=== PATIENT | male | born 1985 | race Caucasian/White ===

== ENCOUNTER 2023-06-17 20:26 | Inpatient (IN) | payer OTHER, SELFPAY ==
[2023-06-17] MEDS ORDERED: Calcium Chloride 1 GM/10 ML Abboject SYRINGE ONE ×2 (20:37→21:07)
[2023-06-17] MEDS ORDERED: Protamine Sulfate 50 MG/5 ML VIAL ONE (20:57)
[2023-06-17] MEDS ORDERED: Heparin 5,000 UNITS/ML VIAL ONE (20:57)
[2023-06-17] MEDS ORDERED: Fentanyl CADD 100 ML IV SCH (21:00)
[2023-06-17] MEDS ORDERED: Tranexamic Acid 1,000 MG/10 ML VIAL ONE (21:00)
[2023-06-17 21:01] LABS: Hematocrit 38.8 % (42.0-52.0); Hemoglobin 12.3 g/dL (14.0-18.0); Mean Corpuscular HGB CONC 31.7 g/dL (32.0-36.0); Mean Corpuscular Hemoglobin 28.5 pg (27.0-31.0); Mean Platelet Volume 8.7 fL (7.4-10.4); Platelet Count 148 10x3/uL (130-400); RBC Distribution Width 15.2 % (11.5-14.5); Red Blood Cell (RBC) Count 4.31 mill/uL (4.70-6.10)
[2023-06-17 21:03] LABS: Delete Auto Diff?? YES; Manual Diff?? YES
[2023-06-17] MEDS ORDERED: Fentanyl 250 MCG/5 ML VIAL ONE (21:06)
[2023-06-17] MEDS ORDERED: Vasopressin 20 UNITS/ML VIAL ONE (21:07)
[2023-06-17] MEDS ORDERED: Norepinephrine 4 MG/4 ML VIAL ONE (21:07)
[2023-06-17] MEDS ORDERED: Sodium Bicarb 50 MEQ/50 ML VIAL ONE (21:07)
[2023-06-17 21:10] LABS: INR-International Normal Ratio 1.5; Prothrombin Time 19.1 sec (12.0-14.7)
[2023-06-17 21:11] LABS: PTT 54.8 sec (22.9-36.1)
[2023-06-17 21:18] LABS: Actual Bicarbonate (HCO3a) 17.4 mEq/L (22-28); Analyzer IN Cardio ER; Base Excess (BEa) -11.2 mEq/L (-2.0 to +3.0); CO2 Tension 49.1 mmHg (35.0-45.0); Calcium, Ionized (arterial) 1.32 mmol/L (1.12-1.30); Carboxyhemoglobin (COHb) 0.3 gm% (0.0-3.0); Hematocrit-ABG 41 % (42.0-52.0); Hemoglobin (Hb) 14.1 g/dL (14.0-18.0); O2 Tension (PaO2), arterial 589.1 mmHg (80.0-100.0); Potassium - ABG Lab 5.51 mmol/L (3.70-5.30)
[2023-06-17 21:22] LABS: ALT (SGPT) 396 U/L (8-55); AST (SGOT) 331 U/L (5-34); Albumin 3.1 g/dL (3.5-5.0); Alkaline Phosphatase 93 U/L (40-110); Anion Gap 22 mmol/L (10-20); BUN (Urea Nitrogen) 19 mg/dL (8.9-20.6); Bilirubin, Total 0.3 mg/dL (0.2-1.2); Calc. Creatinine Clearance 0 mL/min (70-130); Calcium 12.4 mg/dL (7.8-10.44); Carbon Dioxide 16 mmol/L (22-29); Chloride 112 mmol/L (98-107); Estimated GFR 49; Glucose 160 mg/dL (70-105); Protein, Total 5.1 g/dL (6.0-8.3); Sodium 144 mmol/L (136-145)
[2023-06-17 21:23] LABS: Band 4 % (5-11); Burr Cells SLIGHT = 2-5 cells HPF (0-1); CellaVision Operator ID lab.abc; Lymphocytes 17 % (21-51); Monocytes 1 % (0-10); Neutrophil 78 % (42-75); Platelet Adequacy Comment Platelets Normal; RBC Morphology Within Normal Limits; Reactive Lymphocytes 1 % (0-10); Smudge Cells 2.9 %; Total Cell Count 103
[2023-06-17] MEDS ORDERED: Rocuronium Bromide 10 MG/ML (10ML VIAL) ONE (21:27)
[2023-06-17] MEDS ORDERED: Vecuronium 10 MG VIAL ONE (21:27)
[2023-06-17 21:30] LABS: ALV-art Gradient 62.525 mmHg (0-20); Puncture Site LRA; pH, Arterial 7.167 (7.35-7.45)
[2023-06-17 21:32] LABS: Potassium 6.1 mmol/L (3.5-5.1)
[2023-06-17] MEDS ORDERED: Dextrose 50% Abboject 50 ML SYRINGE ONE ×2 (22:19→23:11)
[2023-06-17] MEDS ORDERED: traMADol HCl 50 MG TAB PO SCH (23:45)
[2023-06-17] MEDS ORDERED: Glucagon 1 MG/ML KIT IM PRN (23:48)
[2023-06-17] MEDS ORDERED: Dextrose 5% in Water 1,000 ML IV PRN (23:48)
[2023-06-17] MEDS ORDERED: Ipratropium/Albuterol 3 ML NEB NEB PRN (23:48)
[2023-06-17] MEDS ORDERED: Dextrose 50% Abboject 50 ML SYRINGE SLOW IVP PRN (23:48)
[2023-06-17] MEDS ORDERED: Morphine 2 MG/ML VIAL SLOW IVP PRN (23:48)
[2023-06-17] MEDS ORDERED: Rocuronium Bromide 50 MG/5 ML VIAL ONE (23:56)
[2023-06-17] MEDS ORDERED: fentaNYL PF 100 MCG/2 ML SYRINGE ONE (23:56)
[2023-06-18] MEDS ORDERED: Ventilator Sedation Protocol 1 EACH FS SCH
[2023-06-18] MEDS ORDERED: DISCONTINUE PREVIOUS NARCOTIC PAIN MEDICATIONS AND BENZODIAZEPINES FS SCH (00:15)
[2023-06-18] MEDS ORDERED: Fentanyl BOLUS 250 ML IVPB PRN (00:15)
[2023-06-18] MEDS ORDERED: Propofol BOLUS 1,000 MG/100 ML VIAL IV PRN (00:15)
[2023-06-18] MEDS ORDERED: Sodium Bicarb 50 MEQ/50 ML VIAL ONE ×2 (00:33→07:02)
[2023-06-18] MEDS: Dextrose 10% in Water 1,000 ML IV SCH ×4 (01:00→13:29)
[2023-06-18] MEDS ORDERED: TETANUS, DIPHTHERIA TOX,ADULT (TDVAX) 0.5 ML VIAL IM ONE (01:00)
[2023-06-18] MEDS ORDERED: Sodium Chloride 0.9% 1,000 ML IV SCH (01:00)
[2023-06-18 01:07] LABS: Base Excess (BEa) -4.5 mEq/L (-2.0 to +3.0); CO2 Tension 40.1 mmHg (35.0-45.0); Calcium, Ionized (arterial) 1.24 mmol/L (1.12-1.30); Hematocrit-ABG 41 % (42.0-52.0); Hemoglobin (Hb) 13.9 g/dL (14.0-18.0); O2 Tension (PaO2), arterial 157.7 mmHg (80.0-100.0); Potassium - ABG Lab 3.95 mmol/L (3.70-5.30); Puncture Site Arterial Line; pH, Arterial 7.337 (7.35-7.45)
[2023-06-18 01:08] LABS: ALV-art Gradient 77.375 mmHg (0-20)
[2023-06-18] MEDS: Propofol 1,000 MG/100 ML VIAL IV PRN ×2 (01:11→16:47)
[2023-06-18] MEDS ORDERED: Rocuronium Bromide 50 MG/5 ML VIAL ONE (01:20)
[2023-06-18 01:22] LABS: Hematocrit 40.4 % (42.0-52.0); Hemoglobin 13.5 g/dL (14.0-18.0); Mean Corpuscular HGB CONC 33.4 g/dL (32.0-36.0); Mean Corpuscular Hemoglobin 28.7 pg (27.0-31.0); Mean Platelet Volume 9.6 fL (7.4-10.4); Platelet Count 155 10x3/uL (130-400); RBC Distribution Width 15.8 % (11.5-14.5); Red Blood Cell (RBC) Count 4.71 mill/uL (4.70-6.10); White Blood Cell (WBC) Count 24.5 10x3/uL (4.8-10.8)
[2023-06-18 01:30] LABS: Delete Auto Diff?? YES; Manual Diff?? YES; Mean Corpuscular Volume 85.8 fl (78.0-98.0)
[2023-06-18 01:52] LABS: Band 26 % (5-11); Burr Cells SLIGHT = 2-5 cells HPF (0-1); CellaVision Operator ID lab.abc; Eosinophils 1 % (0-10); Lymphocytes 6 % (21-51); Metamyelocyte 1 % (0-0); Monocytes 1 % (0-10); Neutrophil 65 % (42-75); Platelet Adequacy Comment Platelets Normal; Polychromasia SLIGHT = 2-3 cells HPF (0-2); RBC Morphology Within Normal Limits; Smudge Cells 3.7 %; Total Cell Count 107
[2023-06-18 03:02] LABS: Lactic Acid 4.2 mmol/L (0.5-2.2)
[2023-06-18] MEDS: Acetaminophen 500 MG TAB PO SCH ×4 (03:06→15:54)
[2023-06-18] MEDS ORDERED: TETANUS AND DIPHTHERIA TOX/PF 0.5 ML DISP.SYRIN IM SCH (03:15)
[2023-06-18] MEDS: Sodium Chloride 0.9% 500 ML IV SCH ×2 (03:30→04:00)
[2023-06-18 03:58] LABS: Hematocrit 40.9 % (42.0-52.0); Hemoglobin 13.8 g/dL (14.0-18.0); Mean Corpuscular HGB CONC 33.7 g/dL (32.0-36.0); Mean Corpuscular Hemoglobin 28.8 pg (27.0-31.0); Mean Corpuscular Volume 85.2 fl (78.0-98.0); Mean Platelet Volume 9.7 fL (7.4-10.4); Platelet Count 162 10x3/uL (130-400); RBC Distribution Width 15.9 % (11.5-14.5); White Blood Cell (WBC) Count 20.5 10x3/uL (4.8-10.8)
[2023-06-18 03:59] LABS: Delete Auto Diff?? YES; Manual Diff?? YES
[2023-06-18] MEDS ORDERED: Electrolyte Replacement Protocol 1 EACH FS SCH (04:00)
[2023-06-18 04:29] LABS: ALT (SGPT) 468 U/L (8-55); AST (SGOT) 510 U/L (5-34); Albumin 3.5 g/dL (3.5-5.0); Alkaline Phosphatase 97 U/L (40-110); Anion Gap 17 mmol/L (10-20); BUN (Urea Nitrogen) 24 mg/dL (8.9-20.6); Bilirubin, Total 0.8 mg/dL (0.2-1.2); Calc. Creatinine Clearance 54 mL/min (70-130); Calcium 9.3 mg/dL (7.8-10.44); Carbon Dioxide 19 mmol/L (22-29); Chloride 114 mmol/L (98-107); Estimated GFR 41; Globulin 2.3 g/dL (2.4-3.5); Glucose 105 mg/dL (70-105); Protein, Total 5.8 g/dL (6.0-8.3); Sodium 146 mmol/L (136-145)
[2023-06-18 04:33] LABS: Band 18 % (5-11); Burr Cells SLIGHT = 2-5 cells HPF (0-1); CellaVision Operator ID lab.sh2; Lymphocytes 6 % (21-51); Monocytes 4 % (0-10); Neutrophil 72 % (42-75); Platelet Adequacy Comment Platelets Normal; Polychromasia SLIGHT = 2-3 cells HPF (0-2); Total Cell Count 101
[2023-06-18] MEDS: Cefepime 1 GM in Sodium Chloride 0.9% 100 ML IVPB SCH ×2 (04:57→16:12)
[2023-06-18] MEDS ORDERED: NOREPINEPHRINE 8 MG/250 ML-D5W 250 ML IVPB SCH (05:00)
[2023-06-18] MEDS ORDERED: Lactated Ringer's 500 ML IV SCH ×2 (05:00→21:45)
[2023-06-18] MEDS: Lorazepam 2 MG/ML VIAL SLOW IVP PRN (05:20)
[2023-06-18 05:28] LABS: Amphetamine Detected (NotDetected); Barbiturates Screen Not Detected (NotDetected); Benzodiazepine Screen Not Detected (NotDetected); Cocaine Metabolite Screen Not Detected (NotDetected); Methadone Not Detected (NotDetected); Methamphetamine Detected (NotDetected); Opiate Screen Not Detected (NotDetected); Oxycodone Screen Not Detected (NotDetected); Phencyclidine (PCP) Not Detected (NotDetected); THC/Cannabinoid Screen Not Detected (NotDetected); Tricyclic Screen Not Detected (NotDetected)
[2023-06-18] MEDS ORDERED: Lactated Ringer's 1,000 ML IV SCH ×3 (05:30→11:30)
[2023-06-18 06:47] LABS: Lactic Acid 3.6 mmol/L (0.5-2.2)
[2023-06-18 06:56] LABS: ALT (SGPT) 395 U/L (8-55); AST (SGOT) 610 U/L (5-34); Alkaline Phosphatase 76 U/L (40-110); Anion Gap 14 mmol/L (10-20); BUN (Urea Nitrogen) 30 mg/dL (8.9-20.6); Bilirubin, Total 0.7 mg/dL (0.2-1.2); Calc. Creatinine Clearance 45 mL/min (70-130); Carbon Dioxide 16 mmol/L (22-29); Chloride 115 mmol/L (98-107); Estimated GFR 33; Glucose 95 mg/dL (70-105); Magnesium 2.2 mg/dL (1.6-2.6); Phosphorus 3.8 mg/dL (2.3-4.7); Potassium 3.7 mmol/L (3.5-5.1); Sodium 141 mmol/L (136-145)
[2023-06-18] MEDS ORDERED: Calcium Chloride 1 GM/10 ML Abboject SYRINGE ONE (07:01)
[2023-06-18 07:02] LABS: Actual Bicarbonate (HCO3a) 15.8 mEq/L (22-28); Base Excess (BEa) -9.9 mEq/L (-2.0 to +3.0); CO2 Tension 34.4 mmHg (35.0-45.0); Calcium, Ionized (arterial) 1.15 mmol/L (1.12-1.30); Carboxyhemoglobin (COHb) 0.4 gm% (0.0-3.0); Hematocrit-ABG 42 % (42.0-52.0); Hemoglobin (Hb) 14.4 g/dL (14.0-18.0); O2 Tension (PaO2), arterial 148.5 mmHg (80.0-100.0); Potassium - ABG Lab 3.72 mmol/L (3.70-5.30); pH, Arterial 7.279 (7.35-7.45)
[2023-06-18 07:03] LABS: Puncture Site Arterial Line
[2023-06-18] MEDS ORDERED: Sodium Bicarb 50 MEQ/50 ML VIAL IVP SCH (07:15)
[2023-06-18] MEDS: Sodium Bicarb 50 MEQ/50 ML VIAL ONE (07:26)
[2023-06-18] MEDS: Lactated Ringer's 1,000 ML IV SCH ×3 (08:30→22:21)
[2023-06-18 08:49] LABS: Actual Bicarbonate (HCO3a) 16.9 mEq/L (22-28); Base Excess (BEa) -5.9 mEq/L (-2.0 to +3.0); CO2 Tension 26.8 mmHg (35.0-45.0); Calcium, Ionized (arterial) 1.09 mmol/L (1.12-1.30); Carboxyhemoglobin (COHb) 0.3 gm% (0.0-3.0); Hematocrit-ABG 43 % (42.0-52.0); Hemoglobin (Hb) 14.6 g/dL (14.0-18.0); O2 Tension (PaO2), arterial 311.5 mmHg (80.0-100.0); Potassium - ABG Lab 3.65 mmol/L (3.70-5.30); pH, Arterial 7.417 (7.35-7.45)
[2023-06-18] MEDS: Famotidine/PF 20 mg/2ml Vial SLOW IVP SCH ×2 (08:54→21:30)
[2023-06-18] MEDS ORDERED: Calcium Chloride 1 GM/10 ML Abboject SYRINGE IVP SCH (11:30)
[2023-06-18] MEDS ORDERED: Iopamidol-370 76% 500 ML MDV (1 ML CHARGE) ONE (11:40)
[2023-06-18] MEDS: Albumin 25% 25 GM/100 ML BOT IVPB SCH ×2 (11:40→16:47)
[2023-06-18 11:44] LABS: #Monocytes 0.3 thou/uL (0.11-0.59); #Neutrophils 6.3 thou/uL (1.40-6.50); %Basophils 0.1 % (0.0-1.0); %Lymphocytes 11.3 % (21.0-51.0); %Monocytes 3.9 % (0.0-10.0); %Neutrophils 84.6 % (42.0-75.0); Hematocrit 35.2 % (42.0-52.0); Hemoglobin 11.9 g/dL (14.0-18.0); Mean Corpuscular HGB CONC 33.8 g/dL (32.0-36.0); Mean Corpuscular Hemoglobin 28.7 pg (27.0-31.0); Mean Platelet Volume 10.1 fL (7.4-10.4); Platelet Count 135 10x3/uL (130-400); RBC Distribution Width 16.3 % (11.5-14.5); Red Blood Cell (RBC) Count 4.14 mill/uL (4.70-6.10)
[2023-06-18 12:01] LABS: ALT (SGPT) 297 U/L (8-55); AST (SGOT) 673 U/L (5-34); Albumin 2.4 g/dL (3.5-5.0); Alkaline Phosphatase 55 U/L (40-110); Anion Gap 12 mmol/L (10-20); BUN (Urea Nitrogen) 35 mg/dL (8.9-20.6); Bilirubin, Total 0.6 mg/dL (0.2-1.2); Calc. Creatinine Clearance 38 mL/min (70-130); Calcium 7.6 mg/dL (7.8-10.44); Carbon Dioxide 20 mmol/L (22-29); Chloride 113 mmol/L (98-107); Estimated GFR 26; Globulin 1.5 g/dL (2.4-3.5); Glucose 116 mg/dL (70-105); Potassium 3.3 mmol/L (3.5-5.1); Protein, Total 3.9 g/dL (6.0-8.3); Sodium 142 mmol/L (136-145)
[2023-06-18 12:05] LABS: Puncture Site Arterial Line
[2023-06-18 12:09] LABS: Lactic Acid 4.5 mmol/L (0.5-2.2)
[2023-06-18 12:12] LABS: Manual Diff?? YES
[2023-06-18 12:19] LABS: Band 42 % (5-11); Burr Cells SLIGHT = 2-5 cells HPF (0-1); CellaVision Operator ID LAB.KB; Large Platelets 1.7 % (0-5); Lymphocytes 12 % (21-51); Macrocytosis SLIGHT = 6-15 cells HPF (0-5); Monocytes 1 % (0-10); Neutrophil 45 % (42-75); Ovalocytes SLIGHT = 2-5 cells HPF (0-1); Platelet Adequacy Comment Platelets Normal; Poikilocytosis SLIGHT = 6-15 cells HPF (0-5); Polychromasia SLIGHT = 2-3 cells HPF (0-2); Reflex for Review?? YES; Total Cell Count 119
[2023-06-18] MEDS ORDERED: Potassium Chloride 40 MEQ in Premix Bag 1 BAG IVPB SCH (13:00)
[2023-06-18] MEDS: Vasopressin 20 UNITS in Sodium Chloride 0.9% 50 ML IV SCH ×2 (13:23→19:43)
[2023-06-18] MEDS ORDERED: Dextrose 10% in Water 1,000 ML IV SCH (23:15)
[2023-06-19] MEDS: Dextrose 10% in Water 1,000 ML IV SCH (00:21)
[2023-06-19] MEDS: Albumin 25% 25 GM/100 ML BOT IVPB SCH ×2 (00:53→05:15)
[2023-06-19] MEDS: Acetaminophen 500 MG TAB PO SCH ×4 (01:00→15:25)
[2023-06-19] MEDS: Vasopressin 20 UNITS in Sodium Chloride 0.9% 50 ML IV SCH (02:28)
[2023-06-19 05:07] LABS: Hematocrit 27.5 % (42.0-52.0); Hemoglobin 9.4 g/dL (14.0-18.0); Mean Corpuscular HGB CONC 34.2 g/dL (32.0-36.0); Mean Corpuscular Hemoglobin 28.3 pg (27.0-31.0); Mean Corpuscular Volume 82.8 fl (78.0-98.0); Platelet Count 92 10x3/uL (130-400); RBC Distribution Width 16.5 % (11.5-14.5); Red Blood Cell (RBC) Count 3.32 mill/uL (4.70-6.10); White Blood Cell (WBC) Count 10.5 10x3/uL (4.8-10.8)
[2023-06-19] MEDS: Lactated Ringer's 1,000 ML IV SCH ×2 (05:14→08:18)
[2023-06-19] MEDS: Cefepime 1 GM in Sodium Chloride 0.9% 100 ML IVPB SCH ×2 (05:15→16:02)
[2023-06-19 05:49] LABS: ALT (SGPT) 573 U/L (8-55); AST (SGOT) 1136 U/L (5-34); Albumin 3.2 g/dL (3.5-5.0); Alkaline Phosphatase 54 U/L (40-110); Anion Gap 15 mmol/L (10-20); BUN (Urea Nitrogen) 55 mg/dL (8.9-20.6); Bilirubin, Total 0.8 mg/dL (0.2-1.2); Calc. Creatinine Clearance 23 mL/min (70-130); Calcium 8.1 mg/dL (7.8-10.44); Carbon Dioxide 18 mmol/L (22-29); Chloride 113 mmol/L (98-107); Estimated GFR 14; Globulin 1.3 g/dL (2.4-3.5); Glucose 96 mg/dL (70-105); Magnesium 1.5 mg/dL (1.6-2.6); Potassium 4.2 mmol/L (3.5-5.1); Protein, Total 4.5 g/dL (6.0-8.3); Sodium 142 mmol/L (136-145)
[2023-06-19 05:54] LABS: Delete Auto Diff?? YES; Manual Diff?? YES
[2023-06-19 06:12] LABS: CK (CPK) 26137 U/L (30-200)
[2023-06-19 08:02] LABS: Band 55 % (5-11); CellaVision Operator ID LAB.CLH1; Eosinophils 1 % (0-10); Hypochromia SLIGHT = 6-15 cells HPF (0-5); Lymphocytes 9 % (21-51); Macrocytosis SLIGHT = 6-15 cells HPF (0-5); Metamyelocyte 2 % (0-0); Neutrophil 31 % (42-75); Platelet Adequacy Comment Platelets Decreased; Poikilocytosis SLIGHT = 6-15 cells HPF (0-5); Polychromasia SLIGHT = 2-3 cells HPF (0-2); Total Cell Count 103
[2023-06-19] MEDS: Famotidine/PF 20 mg/2ml Vial SLOW IVP SCH ×2 (08:07→20:25)
[2023-06-19] MEDS: Propofol 1,000 MG/100 ML VIAL IV PRN ×2 (08:07→16:03)
[2023-06-19] MEDS: D5 1/4 NS 1,000 ML IV SCH (09:17)
[2023-06-19] MEDS ORDERED: Fentanyl CADD 0 ML ONE (14:54)
[2023-06-19] MEDS ORDERED: Fentanyl CADD 100 ML ONE (14:55)
[2023-06-19] MEDS: Lorazepam 2 MG/ML VIAL SLOW IVP PRN (22:04)
[2023-06-20] MEDS: Acetaminophen 500 MG TAB PO SCH ×4 (00:22→13:40)
[2023-06-20] MEDS: D5 1/4 NS 1,000 ML IV SCH ×5 (00:22→21:52)
[2023-06-20] MEDS: Propofol 1,000 MG/100 ML VIAL IV PRN (02:15)
[2023-06-20] MEDS ORDERED: Albumin 25% 25 GM/100 ML BOT IVPB SCH (03:00)
[2023-06-20 04:37] LABS: Hemoglobin 8.3 g/dL (14.0-18.0); Mean Corpuscular HGB CONC 33.2 g/dL (32.0-36.0); Mean Corpuscular Hemoglobin 28.4 pg (27.0-31.0); Mean Platelet Volume 11.2 fL (7.4-10.4); RBC Distribution Width 16.4 % (11.5-14.5); Red Blood Cell (RBC) Count 2.92 mill/uL (4.70-6.10); White Blood Cell (WBC) Count 10.4 10x3/uL (4.8-10.8)
[2023-06-20 04:41] LABS: Delete Auto Diff?? YES; Manual Diff?? YES; Mean Corpuscular Volume 85.6 fl (78.0-98.0); Platelet Count 74 10x3/uL (130-400)
[2023-06-20 05:32] LABS: Band 39 % (5-11); Burr Cells SLIGHT = 2-5 cells HPF (0-1); CellaVision Operator ID lab.abc; Eosinophils 5 % (0-10); Large Platelets 1.9 % (0-5); Lymphocytes 7 % (21-51); Monocytes 4 % (0-10); Neutrophil 44 % (42-75); Platelet Adequacy Comment Platelets Decreased; Smudge Cells 20.2 %; Total Cell Count 104
[2023-06-20] MEDS: Cefepime 1 GM in Sodium Chloride 0.9% 100 ML IVPB SCH ×2 (05:39→17:21)
[2023-06-20 07:46] LABS: Anion Gap 24 mmol/L (10-20); BUN (Urea Nitrogen) 48 mg/dL (8.9-20.6); Calc. Creatinine Clearance 43 mL/min (70-130); Carbon Dioxide 13 mmol/L (22-29); Chloride 104 mmol/L (98-107); Potassium 5.3 mmol/L (3.5-5.1); Sodium 136 mmol/L (136-145)
[2023-06-20 07:47] LABS: Calcium 11.1 mg/dL (7.8-10.44); Estimated GFR 29; Glucose 159 mg/dL (70-105)
[2023-06-20] MEDS: Famotidine/PF 20 mg/2ml Vial SLOW IVP SCH (08:02)
[2023-06-20 13:34] LABS: Anion Gap 15 mmol/L (10-20); BUN (Urea Nitrogen) 76 mg/dL (8.9-20.6); Calc. Creatinine Clearance 15 mL/min (70-130); Calcium 7.3 mg/dL (7.8-10.44); Carbon Dioxide 18 mmol/L (22-29); Chloride 105 mmol/L (98-107); Estimated GFR 8; Glucose 88 mg/dL (70-105); Potassium 4.8 mmol/L (3.5-5.1); Sodium 133 mmol/L (136-145)
[2023-06-20 14:25] LABS: HBSAg Index 0.31 S/CO (0-0.99); Hep B Core Total Ab Non-Reactive (NonReactive); Hep B Core Total Index 0.07 S/CO (0-0.79); Hep B Surf Ag Non-Reactive S/CO (NonReactive); Hep C IgG Ab Non-Reactive S/CO (NonReactive); Hep C Index 0.04 S/CO (0-0.79)
[2023-06-20 14:35] LABS: Hep B Surf AB Non-Reactive (NonReactive)
[2023-06-21] MEDS: Acetaminophen 500 MG TAB PO SCH ×3 (02:23→12:46)
[2023-06-21] MEDS: D5 1/4 NS 1,000 ML IV SCH ×3 (02:23→08:49)
[2023-06-21] MEDS: Cefepime 1 GM in Sodium Chloride 0.9% 100 ML IVPB SCH ×2 (04:38→18:09)
[2023-06-21] MEDS: Morphine 2 MG/ML VIAL SLOW IVP PRN ×2 (04:48→08:41)
[2023-06-21] MEDS: Lorazepam 2 MG/ML VIAL SLOW IVP PRN (04:55)
[2023-06-21 06:10] LABS: White Blood Cell (WBC) Count 7.4 10x3/uL (4.8-10.8)
[2023-06-21 06:52] LABS: Hematocrit 20.9 % (42.0-52.0); Hemoglobin 7.2 g/dL (14.0-18.0); Mean Corpuscular HGB CONC 34.4 g/dL (32.0-36.0); Mean Corpuscular Hemoglobin 28.9 pg (27.0-31.0); Mean Corpuscular Volume 83.9 fl (78.0-98.0); Mean Platelet Volume 11.7 fL (7.4-10.4); RBC Distribution Width 15.7 % (11.5-14.5); Red Blood Cell (RBC) Count 2.49 mill/uL (4.70-6.10); White Blood Cell (WBC) Count 9.6 10x3/uL (4.8-10.8)
[2023-06-21 07:13] LABS: Manual Diff?? YES; Platelet Count 57 10x3/uL (130-400)
[2023-06-21 07:14] LABS: Delete Auto Diff?? YES
[2023-06-21 07:19] LABS: Anion Gap 17 mmol/L (10-20); BUN (Urea Nitrogen) 66 mg/dL (8.9-20.6); Calc. Creatinine Clearance 15 mL/min (70-130); Carbon Dioxide 19 mmol/L (22-29); Chloride 101 mmol/L (98-107); Estimated GFR 8; Glucose 196 mg/dL (70-105); Potassium 3.9 mmol/L (3.5-5.1); Sodium 133 mmol/L (136-145)
[2023-06-21 07:33] LABS: Calcium 6.8 mg/dL (7.8-10.44)
[2023-06-21 07:51] LABS: CK (CPK) 15377 U/L (30-200)
[2023-06-21] MEDS ORDERED: Calcium Chloride 13.6 MEQ in Sodium Chloride 0.9% 100 ML IVPB SCH (08:15)
[2023-06-21 08:16] LABS: Band 21 % (5-11); Burr Cells SLIGHT = 2-5 cells HPF (0-1); CellaVision Operator ID LAB.GE; Dohle Bodies SLIGHT; Lymphocytes 3 % (21-51); Monocytes 2 % (0-10); Neutrophil 74 % (42-75); Platelet Adequacy Comment Platelets Decreased; Polychromasia SLIGHT = 2-3 cells HPF (0-2); Total Cell Count 100; Toxic Granulation SLIGHT
[2023-06-21] MEDS: Famotidine/PF 20 mg/2ml Vial SLOW IVP SCH (08:25)
[2023-06-21] MEDS: Ascorbic Acid 500 mg Chewable Tablet PO SCH ×2 (08:42→20:20)
[2023-06-21] MEDS ORDERED: Acetaminophen 650 MG/20.3 ML UDCUP PO PRN (14:14)
[2023-06-21] MEDS ORDERED: Calcium Gluconate 100 MG/ML 10 ML IVPB SCH (14:15)
[2023-06-21] MEDS: Ferrous Sulfate 325 MG TAB PO SCH (18:08)
[2023-06-21] MEDS: Heparin 5,000 UNITS/ML VIAL SC SCH (21:23)
[2023-06-22] MEDS ORDERED: Morphine 2 MG/ML VIAL SLOW IVP SCH (01:30)
[2023-06-22] MEDS: Cefepime 1 GM in Sodium Chloride 0.9% 100 ML IVPB SCH ×2 (04:18→17:25)
[2023-06-22 05:08] LABS: Lactic Acid 1.7 mmol/L (0.5-2.2)
[2023-06-22 05:18] LABS: ALT (SGPT) 378 U/L (8-55); AST (SGOT) 762 U/L (5-34); Alkaline Phosphatase 161 U/L (40-110); Bilirubin, Direct 0.9 mg/dL (0.1-0.3); Bilirubin, Total 1.4 mg/dL (0.2-1.2); Protein, Total 5.2 g/dL (6.0-8.3)
[2023-06-22 05:45] LABS: Anion Gap 16 mmol/L (10-20); BUN (Urea Nitrogen) 48 mg/dL (8.9-20.6); Calc. Creatinine Clearance 18 mL/min (70-130); Carbon Dioxide 25 mmol/L (22-29); Chloride 98 mmol/L (98-107); Estimated GFR 11; Glucose 84 mg/dL (70-105); Potassium 3.4 mmol/L (3.5-5.1); Sodium 136 mmol/L (136-145)
[2023-06-22 05:47] LABS: CK (CPK) 12826 U/L (30-200)
[2023-06-22 08:53] LABS: Hematocrit 23.9 % (42.0-52.0); Hemoglobin 8.4 g/dL (14.0-18.0); Mean Corpuscular HGB CONC 35.1 g/dL (32.0-36.0); Mean Corpuscular Hemoglobin 29.1 pg (27.0-31.0); Mean Corpuscular Volume 82.7 fl (78.0-98.0); Mean Platelet Volume 11.4 fL (7.4-10.4); Red Blood Cell (RBC) Count 2.89 mill/uL (4.70-6.10); White Blood Cell (WBC) Count 12.2 10x3/uL (4.8-10.8)
[2023-06-22] MEDS ORDERED: Pantoprazole 40 MG VIAL IVP SCH (09:00)
[2023-06-22] MEDS: Ferrous Sulfate 325 MG TAB PO SCH ×2 (09:06→17:26)
[2023-06-22] MEDS: Ascorbic Acid 500 mg Chewable Tablet PO SCH ×2 (09:06→20:12)
[2023-06-22 09:08] VITALS: BMI 28.8
[2023-06-22 09:10] LABS: Platelet Count 82 10x3/uL (130-400)
[2023-06-22 09:11] LABS: Delete Auto Diff?? YES; Manual Diff?? YES
[2023-06-22] MEDS: Heparin 5,000 UNITS/ML VIAL SC SCH (09:43)
[2023-06-22] MEDS: Morphine 2 MG/ML VIAL SLOW IVP PRN (09:48)
[2023-06-22 10:04] LABS: Band 24 % (5-11); CellaVision Operator ID LAB.GE; Lymphocytes 9 % (21-51); Metamyelocyte 2 % (0-0); Monocytes 8 % (0-10); Neutrophil 55 % (42-75); Platelet Adequacy Comment Platelets Decreased; Polychromasia SLIGHT = 2-3 cells HPF (0-2); Reactive Lymphocytes 2 % (0-10); Total Cell Count 103
[2023-06-22] MEDS ORDERED: Cyclobenzaprine 10 MG TAB PO PRN (17:51)
[2023-06-22] MEDS ORDERED: Acetaminophen 650 MG/20.3 ML UDCUP PO SCH (18:00)
[2023-06-22] MEDS ORDERED: traMADol HCl 50 MG TAB PO SCH (18:00)
[2023-06-22] MEDS: Acetaminophen/Codeine 30-300mg Tablet PO SCH ×2 (18:24→23:50)
[2023-06-23] MEDS: Morphine 2 MG/ML VIAL SLOW IVP PRN ×2 (03:00→10:10)
[2023-06-23 05:14] LABS: INR-International Normal Ratio 1.1; PTT 33.2 sec (22.9-36.1); Prothrombin Time 14.4 sec (12.0-14.7)
[2023-06-23 05:25] LABS: ALT (SGPT) 226 U/L (8-55); AST (SGOT) 437 U/L (5-34); Alkaline Phosphatase 150 U/L (40-110); Anion Gap 19 mmol/L (10-20); BUN (Urea Nitrogen) 82 mg/dL (8.9-20.6); Bilirubin, Total 1.2 mg/dL (0.2-1.2); Calc. Creatinine Clearance 14 mL/min (70-130); Calcium 7.9 mg/dL (7.8-10.44); Carbon Dioxide 21 mmol/L (22-29); Chloride 95 mmol/L (98-107); Estimated GFR 8; Globulin 2.4 g/dL (2.4-3.5); Glucose 94 mg/dL (70-105); Magnesium 2.1 mg/dL (1.6-2.6); Phosphorus 3.7 mg/dL (2.3-4.7); Potassium 3.4 mmol/L (3.5-5.1); Protein, Total 5.4 g/dL (6.0-8.3); Sodium 132 mmol/L (136-145)
[2023-06-23] MEDS: Acetaminophen/Codeine 30-300mg Tablet PO SCH ×4 (05:41→23:06)
[2023-06-23] MEDS: Ascorbic Acid 500 mg Chewable Tablet PO SCH ×2 (09:33→20:15)
[2023-06-23] MEDS: Ferrous Sulfate 325 MG TAB PO SCH ×3 (09:33→20:14)
[2023-06-23] MEDS: Heparin 5,000 UNITS/ML VIAL SC SCH ×2 (09:34→20:15)
[2023-06-23] MEDS: Cefepime 1 GM in Sodium Chloride 0.9% 100 ML IVPB SCH (18:11)
[2023-06-23] MEDS: Pregabalin 50 MG CAP PO SCH (20:15)
[2023-06-24] MEDS: Acetaminophen/Codeine 30-300mg Tablet PO SCH ×4 (05:21→23:38)
[2023-06-24 05:43] LABS: INR-International Normal Ratio 1.1; Prothrombin Time 14.4 sec (12.0-14.7)
[2023-06-24 05:44] LABS: PTT 32.9 sec (22.9-36.1)
[2023-06-24 05:51] LABS: Anion Gap 17 mmol/L (10-20); BUN (Urea Nitrogen) 59 mg/dL (8.9-20.6); Calc. Creatinine Clearance 17 mL/min (70-130); Calcium 7.9 mg/dL (7.8-10.44); Carbon Dioxide 22 mmol/L (22-29); Chloride 96 mmol/L (98-107); Estimated GFR 10; Glucose 87 mg/dL (70-105); Potassium 3.6 mmol/L (3.5-5.1); Sodium 131 mmol/L (136-145)
[2023-06-24 05:56] LABS: ALT (SGPT) 148 U/L (8-55); AST (SGOT) 209 U/L (5-34); Albumin 2.9 g/dL (3.5-5.0); Alkaline Phosphatase 162 U/L (40-110); Anion Gap 16 mmol/L (10-20); BUN (Urea Nitrogen) 60 mg/dL (8.9-20.6); Calc. Creatinine Clearance 17 mL/min (70-130); Calcium 7.9 mg/dL (7.8-10.44); Carbon Dioxide 23 mmol/L (22-29); Chloride 96 mmol/L (98-107); Estimated GFR 10; Globulin 2.5 g/dL (2.4-3.5); Glucose 87 mg/dL (70-105); Phosphorus 3.5 mg/dL (2.3-4.7); Potassium 3.6 mmol/L (3.5-5.1); Protein, Total 5.4 g/dL (6.0-8.3); Sodium 131 mmol/L (136-145)
[2023-06-24 07:50] LABS: Hematocrit 25.7 % (42.0-52.0); Hemoglobin 8.6 g/dL (14.0-18.0); Mean Corpuscular HGB CONC 33.5 g/dL (32.0-36.0); Mean Corpuscular Hemoglobin 28.9 pg (27.0-31.0); Mean Corpuscular Volume 86.2 fl (78.0-98.0); Platelet Count 190 10x3/uL (130-400); RBC Distribution Width 15.5 % (11.5-14.5); Red Blood Cell (RBC) Count 2.98 mill/uL (4.70-6.10); White Blood Cell (WBC) Count 19.1 10x3/uL (4.8-10.8)
[2023-06-24 07:55] LABS: Delete Auto Diff?? YES; Manual Diff?? YES
[2023-06-24 08:25] LABS: Band 13 % (5-11); CellaVision Operator ID lab.dlt; Eosinophils 4 % (0-10); Hypochromia SLIGHT = 6-15 cells HPF (0-5); Large Platelets 1.7 % (0-5); Lymphocytes 4 % (21-51); Monocytes 9 % (0-10); Neutrophil 70 % (42-75); Platelet Adequacy Comment Platelets Normal; Polychromasia SLIGHT = 2-3 cells HPF (0-2); Total Cell Count 115
[2023-06-24] MEDS: Pregabalin 50 MG CAP PO SCH ×2 (08:26→20:10)
[2023-06-24] MEDS: Heparin 5,000 UNITS/ML VIAL SC SCH ×2 (08:27→20:12)
[2023-06-24] MEDS: Ferrous Sulfate 325 MG TAB PO SCH ×2 (08:27→20:11)
[2023-06-24] MEDS: Ascorbic Acid 500 mg Chewable Tablet PO SCH ×2 (08:27→20:11)
[2023-06-24] MEDS: Ondansetron PF 4 MG/2 ML Vial IVP PRN (10:21)
[2023-06-24] MEDS: Cefepime 1 GM in Sodium Chloride 0.9% 100 ML IVPB SCH (18:09)
[2023-06-25 05:05] LABS: #Basophils 0.1 thou/uL (0.0-0.2); #Eosinphils 0.7 thou/uL (0.0-0.7); #Monocytes 1.2 thou/uL (0.11-0.59); #Neutrophils 17.4 thou/uL (1.40-6.50); %Basophils 0.5 % (0.0-1.0); %Eosinophils 3.1 % (0.0-10.0); %Lymphocytes 7.5 % (21.0-51.0); %Monocytes 5.1 % (0.0-10.0); %Neutrophils 73.2 % (42.0-75.0); Hematocrit 28.9 % (42.0-52.0); Hemoglobin 9.6 g/dL (14.0-18.0); Mean Corpuscular HGB CONC 33.2 g/dL (32.0-36.0); Mean Corpuscular Hemoglobin 28.9 pg (27.0-31.0); Mean Platelet Volume 10.5 fL (7.4-10.4); Platelet Count 285 10x3/uL (130-400); RBC Distribution Width 15.4 % (11.5-14.5); Red Blood Cell (RBC) Count 3.32 mill/uL (4.70-6.10); White Blood Cell (WBC) Count 23.8 10x3/uL (4.8-10.8)
[2023-06-25] MEDS: Acetaminophen/Codeine 30-300mg Tablet PO SCH (05:51)
[2023-06-25 05:57] LABS: ALT (SGPT) 109 U/L (8-55); AST (SGOT) 128 U/L (5-34); Albumin 2.9 g/dL (3.5-5.0); Alkaline Phosphatase 168 U/L (40-110); Anion Gap 17 mmol/L (10-20); BUN (Urea Nitrogen) 81 mg/dL (8.9-20.6); Bilirubin, Total 1.1 mg/dL (0.2-1.2); Calc. Creatinine Clearance 13 mL/min (70-130); Calcium 8.2 mg/dL (7.8-10.44); Carbon Dioxide 22 mmol/L (22-29); Chloride 93 mmol/L (98-107); Estimated GFR 7; Globulin 2.6 g/dL (2.4-3.5); Glucose 83 mg/dL (70-105); Phosphorus 5.7 mg/dL (2.3-4.7); Potassium 3.9 mmol/L (3.5-5.1); Protein, Total 5.5 g/dL (6.0-8.3); Sodium 128 mmol/L (136-145)
[2023-06-25] MEDS: Ascorbic Acid 500 mg Chewable Tablet PO SCH ×2 (08:37→22:17)
[2023-06-25] MEDS: Ferrous Sulfate 325 MG TAB PO SCH ×2 (08:38→22:17)
[2023-06-25] MEDS: Pregabalin 50 MG CAP PO SCH ×2 (08:38→22:16)
[2023-06-25] MEDS: Heparin 5,000 UNITS/ML VIAL SC SCH ×2 (08:38→22:17)
[2023-06-25] MEDS: Ondansetron PF 4 MG/2 ML Vial IVP PRN (08:48)
[2023-06-25] MEDS: Acetaminophen 325 MG TAB PO SCH ×3 (12:05→18:38)
[2023-06-25 15:00] LABS: Bilirubin Negative (Negative); Blood, Urine 3+ (Negative); CAUTI Indications for Culture Alt mental st,lethar; Clarity Turbid (Clear); Glucose, Urine (Dipstick) Normal (Negative); Ketone, Urine Negative (Negative); Leukocyte 500 Leu/uL (Negative); Nitrite Negative (Negative); Protein, Urine (Dipstick) 300 mg/dL (Neg-Trace); Specific Gravity, Urine 1.016 (1.002-1.036); Squamous Epithelial 0-3 HPF (0-3); Urobilinogen Normal mg/dL (Less than 2)
[2023-06-25 15:05] LABS: WBC/HPF 21-50 HPF (0-3)
[2023-06-25 15:06] LABS: Bacteria/HPF 2+ HPF (None Seen)
[2023-06-25 15:09] LABS: Urine Culture Reflex Yes Yes
[2023-06-25] MEDS: Sodium Chloride 0.9% 1,000 ML IV SCH (16:12)
[2023-06-25] MEDS ORDERED: Sodium Chloride 0.9% 500 ML IV SCH (18:00)
[2023-06-25] MEDS: Cefepime 1 GM in Sodium Chloride 0.9% 100 ML IVPB SCH (18:37)
[2023-06-25] MEDS: Metoclopramide 10 MG/10 ML UDCUP PO SCH (21:31)
[2023-06-26] MEDS: Sodium Chloride 0.9% 1,000 ML IV SCH ×3 (00:30→16:34)
[2023-06-26] MEDS: Acetaminophen 325 MG TAB PO SCH ×2 (01:15→05:48)
[2023-06-26 06:28] LABS: Anion Gap 16 mmol/L (10-20); BUN (Urea Nitrogen) 59 mg/dL (8.9-20.6); Calc. Creatinine Clearance 17 mL/min (70-130); Calcium 7.7 mg/dL (7.8-10.44); Carbon Dioxide 23 mmol/L (22-29); Chloride 96 mmol/L (98-107); Estimated GFR 10; Glucose 86 mg/dL (70-105); Potassium 3.8 mmol/L (3.5-5.1); Sodium 131 mmol/L (136-145)
[2023-06-26] MEDS ORDERED: Bupivacaine HCl 0.5%/Epinephrine 1:200,000/PF 30 ml Vial ONE (07:32)
[2023-06-26] MEDS ORDERED: Lidocaine 2% PF 5 ML VIAL ONE (07:32)
[2023-06-26] MEDS: Naloxegol 12.5 MG TAB PO SCH (07:51)
[2023-06-26] MEDS: Metoclopramide 10 MG/10 ML UDCUP PO SCH ×4 (07:51→21:52)
[2023-06-26] MEDS ORDERED: CEFAZOLIN 2 GM VIAL ONE (07:55)
[2023-06-26] MEDS ORDERED: Sodium Chloride 0.9% 100 ML ONE (07:56)
[2023-06-26] MEDS ORDERED: fentaNYL 50 mcg/mL 1 mL Vial ONE (08:02)
[2023-06-26] MEDS ORDERED: Dexamethasone 20 MG/5 ML VIAL ONE (08:19)
[2023-06-26] MEDS ORDERED: Lidocaine 1% PF 5 ML VIAL ONE (08:19)
[2023-06-26] MEDS ORDERED: PROPOFOL 200 MG/20 ML VIAL ONE (08:19)
[2023-06-26] MEDS ORDERED: Ondansetron PF 4 MG/2 ML Vial ONE (08:19)
[2023-06-26] MEDS ORDERED: Sevoflurane 250 ML INH ANEST BOTTLE ONE (08:35)
[2023-06-26] MEDS ORDERED: Heparin 10,000 UNITS/ 10 ML VIAL ONE (08:51)
[2023-06-26] MEDS: Ascorbic Acid 500 mg Chewable Tablet PO SCH ×2 (09:55→21:52)
[2023-06-26] MEDS: Heparin 5,000 UNITS/ML VIAL SC SCH ×3 (09:55→22:01)
[2023-06-26] MEDS: Ferrous Sulfate 325 MG TAB PO SCH ×2 (09:55→21:51)
[2023-06-26] MEDS: Pregabalin 50 MG CAP PO SCH ×2 (09:55→22:00)
[2023-06-26] MEDS: Acetaminophen/Codeine 30-300mg Tablet PO PRN (14:32)
[2023-06-26] MEDS: Gabapentin 300 MG CAP PO SCH ×2 (15:29→22:02)
[2023-06-26] MEDS: Cefepime 1 GM in Sodium Chloride 0.9% 100 ML IVPB SCH (16:38)
[2023-06-27 05:40] LABS: Anion Gap 18 mmol/L (10-20); BUN (Urea Nitrogen) 86 mg/dL (8.9-20.6); Calc. Creatinine Clearance 14 mL/min (70-130); Calcium 7.6 mg/dL (7.8-10.44); Carbon Dioxide 20 mmol/L (22-29); Chloride 94 mmol/L (98-107); Estimated GFR 8; Glucose 129 mg/dL (70-105); Potassium 4.5 mmol/L (3.5-5.1); Sodium 127 mmol/L (136-145)
[2023-06-27] MEDS: Naloxegol 12.5 MG TAB PO SCH (08:57)
[2023-06-27] MEDS: Ascorbic Acid 500 mg Chewable Tablet PO SCH ×2 (08:58→21:07)
[2023-06-27] MEDS: Gabapentin 300 MG CAP PO SCH ×3 (08:58→21:06)
[2023-06-27] MEDS: Metoclopramide 10 MG/10 ML UDCUP PO SCH ×4 (08:58→21:07)
[2023-06-27] MEDS: Ferrous Sulfate 325 MG TAB PO SCH ×2 (08:58→21:07)
[2023-06-27] MEDS: Heparin 5,000 UNITS/ML VIAL SC SCH ×3 (08:59→21:08)
[2023-06-27] MEDS: Pregabalin 50 MG CAP PO SCH ×2 (08:59→21:07)
[2023-06-27 09:19] LABS: Hematocrit 21.9 % (42.0-52.0); Hemoglobin 7.2 g/dL (14.0-18.0); Mean Corpuscular HGB CONC 32.9 g/dL (32.0-36.0); Mean Corpuscular Hemoglobin 28.6 pg (27.0-31.0); Mean Corpuscular Volume 86.9 fl (78.0-98.0); Mean Platelet Volume 9.7 fL (7.4-10.4); Platelet Count 453 10x3/uL (130-400); RBC Distribution Width 15.9 % (11.5-14.5); Red Blood Cell (RBC) Count 2.52 mill/uL (4.70-6.10); White Blood Cell (WBC) Count 23.8 10x3/uL (4.8-10.8)
[2023-06-27 09:25] LABS: Delete Auto Diff?? YES; Manual Diff?? YES
[2023-06-27 10:21] LABS: Band 6 % (5-11); CellaVision Operator ID LAB.GE; Eosinophils 1 % (0-10); Large Platelets 1.7 % (0-5); Lymphocytes 4 % (21-51); Metamyelocyte 1 % (0-0); Monocytes 3 % (0-10); Neutrophil 85 % (42-75); Platelet Adequacy Comment Platelets Increased; Polychromasia SLIGHT = 2-3 cells HPF (0-2); Smudge Cells 1.7 %; Total Cell Count 116
[2023-06-27] MEDS: Cefepime 1 GM in Sodium Chloride 0.9% 100 ML IVPB SCH (16:12)
[2023-06-27] MEDS ORDERED: CEFAZOLIN 2 GM in Sodium Chloride 0.9% 100 ML IVPB SCH (17:00)
[2023-06-28 05:01] LABS: Hematocrit 22.2 % (42.0-52.0); Hemoglobin 7.3 g/dL (14.0-18.0); Mean Corpuscular HGB CONC 32.9 g/dL (32.0-36.0); Mean Corpuscular Hemoglobin 28.6 pg (27.0-31.0); Mean Corpuscular Volume 87.1 fl (78.0-98.0); Mean Platelet Volume 9.6 fL (7.4-10.4); Platelet Count 532 10x3/uL (130-400); RBC Distribution Width 15.9 % (11.5-14.5); Red Blood Cell (RBC) Count 2.55 mill/uL (4.70-6.10); White Blood Cell (WBC) Count 19.4 10x3/uL (4.8-10.8)
[2023-06-28 05:12] LABS: Delete Auto Diff?? YES; Manual Diff?? YES
[2023-06-28 05:26] LABS: Phosphorus 7.3 mg/dL (2.3-4.7)
[2023-06-28 05:27] LABS: Anion Gap 19 mmol/L (10-20); BUN (Urea Nitrogen) 99 mg/dL (8.9-20.6); Calc. Creatinine Clearance 12 mL/min (70-130); Calcium 7.6 mg/dL (7.8-10.44); Carbon Dioxide 19 mmol/L (22-29); Chloride 94 mmol/L (98-107); Estimated GFR 7; Glucose 94 mg/dL (70-105); Magnesium 2.2 mg/dL (1.6-2.6); Potassium 4.4 mmol/L (3.5-5.1); Sodium 128 mmol/L (136-145)
[2023-06-28 05:44] LABS: Anisocytosis SLIGHT = 6-15 cells HPF (0-5); Band 2 % (5-11); Large Platelets 0.9 % (0-5); Lymphocytes 9 % (21-51); Metamyelocyte 1 % (0-0); Myelocyte 1 % (0-0); Neutrophil 88 % (42-75); Platelet Adequacy Comment Platelets Increased; Polychromasia SLIGHT = 2-3 cells HPF (0-2); Total Cell Count 116
[2023-06-28] MEDS: Metoclopramide 10 MG/10 ML UDCUP PO SCH ×4 (06:58→21:37)
[2023-06-28] MEDS: Naloxegol 12.5 MG TAB PO SCH (06:59)
[2023-06-28] MEDS ORDERED: Heparin 10,000 UNITS/ 10 ML VIAL ONE (09:12)
[2023-06-28] MEDS: Senokot S 8.6-50 MG TAB PO SCH ×2 (12:09→21:36)
[2023-06-28] MEDS: Ascorbic Acid 500 mg Chewable Tablet PO SCH ×2 (12:09→21:36)
[2023-06-28] MEDS: Ferrous Sulfate 325 MG TAB PO SCH ×2 (12:09→21:36)
[2023-06-28] MEDS: Saccharomyces boulardii 250 MG CAP PO SCH (12:09)
[2023-06-28] MEDS: Polyethylene Glycol 3350 17 GM Packet PO SCH (12:10)
[2023-06-28] MEDS: Heparin 5,000 UNITS/ML VIAL SC SCH ×3 (12:10→21:37)
[2023-06-28] MEDS: Gabapentin 300 MG CAP PO SCH ×3 (12:10→21:37)
[2023-06-28] MEDS ORDERED: Cefepime 0.5 GM, Admixture Fee 1 EACH in Sodium Chloride 0.9% 100 ML IVPB SCH (17:00)
[2023-06-28] MEDS ORDERED: Cefepime 0.5 GM in Sodium Chloride 0.9% 100 ML IVPB SCH (17:00)
[2023-06-29] MEDS: Naloxegol 12.5 MG TAB PO SCH (06:36)
[2023-06-29] MEDS: Metoclopramide 10 MG/10 ML UDCUP PO SCH ×4 (06:36→21:08)
[2023-06-29 07:16] LABS: Anion Gap 17 mmol/L (10-20); BUN (Urea Nitrogen) 66 mg/dL (8.9-20.6); Calc. Creatinine Clearance 17 mL/min (70-130); Calcium 7.3 mg/dL (7.8-10.44); Carbon Dioxide 23 mmol/L (22-29); Chloride 96 mmol/L (98-107); Estimated GFR 10; Glucose 94 mg/dL (70-105); Potassium 4.8 mmol/L (3.5-5.1); Sodium 131 mmol/L (136-145)
[2023-06-29] MEDS ORDERED: Heparin 10,000 UNITS/ 10 ML VIAL ONE (10:38)
[2023-06-29] MEDS: Ferrous Sulfate 325 MG TAB PO SCH ×2 (11:46→21:07)
[2023-06-29] MEDS: Ascorbic Acid 500 mg Chewable Tablet PO SCH ×2 (11:46→21:07)
[2023-06-29] MEDS: Polyethylene Glycol 3350 17 GM Packet PO SCH (11:47)
[2023-06-29] MEDS: Heparin 5,000 UNITS/ML VIAL SC SCH ×3 (11:47→21:08)
[2023-06-29] MEDS: Gabapentin 300 MG CAP PO SCH ×3 (11:47→21:07)
[2023-06-29] MEDS: Aspirin 81 mg Enteric Coated Tablet PO SCH (12:08)
[2023-06-29] MEDS: Saccharomyces boulardii 250 MG CAP PO SCH (12:08)
[2023-06-29] MEDS: Senokot S 8.6-50 MG TAB PO SCH ×2 (12:10→21:14)
[2023-06-29 12:35] LABS: Hematocrit 23.7 % (42.0-52.0); Hemoglobin 7.9 g/dL (14.0-18.0); Mean Corpuscular HGB CONC 33.3 g/dL (32.0-36.0); Mean Corpuscular Hemoglobin 28.7 pg (27.0-31.0); Mean Corpuscular Volume 86.2 fl (78.0-98.0); Mean Platelet Volume 9.4 fL (7.4-10.4); Platelet Count 600 10x3/uL (130-400); RBC Distribution Width 15.9 % (11.5-14.5); Red Blood Cell (RBC) Count 2.75 mill/uL (4.70-6.10); White Blood Cell (WBC) Count 22.2 10x3/uL (4.8-10.8)
[2023-06-29 12:38] LABS: Delete Auto Diff?? YES; Manual Diff?? YES
[2023-06-29 13:04] LABS: Anisocytosis SLIGHT = 6-15 cells HPF (0-5); Band 7 % (5-11); Burr Cells SLIGHT = 2-5 cells HPF (0-1); CellaVision Operator ID LAB.MJL; Eosinophils 2 % (0-10); Lymphocytes 7 % (21-51); Metamyelocyte 3 % (0-0); Monocytes 4 % (0-10); Myelocyte 1 % (0-0); Neutrophil 75 % (42-75); Platelet Adequacy Comment Platelets Increased; Poikilocytosis SLIGHT = 6-15 cells HPF (0-5); Polychromasia MODERATE = 3-4 cells HPF (0-2); Tear Drops SLIGHT = 2-5 cells HPF (0-1); Total Cell Count 118
[2023-06-30 06:07] LABS: #Basophils 0.1 thou/uL (0.0-0.2); #Eosinphils 0.5 thou/uL (0.0-0.7); #Monocytes 1.6 thou/uL (0.11-0.59); #Neutrophils 12.1 thou/uL (1.40-6.50); %Basophils 0.5 % (0.0-1.0); %Eosinophils 2.9 % (0.0-10.0); %Lymphocytes 12.3 % (21.0-51.0); %Monocytes 9.2 % (0.0-10.0); %Neutrophils 67.3 % (42.0-75.0); Hematocrit 20.6 % (42.0-52.0); Hemoglobin 6.7 g/dL (14.0-18.0); Mean Corpuscular HGB CONC 32.5 g/dL (32.0-36.0); Mean Corpuscular Hemoglobin 28.9 pg (27.0-31.0); Mean Platelet Volume 9.5 fL (7.4-10.4); Platelet Count 554 10x3/uL (130-400); Red Blood Cell (RBC) Count 2.32 mill/uL (4.70-6.10); White Blood Cell (WBC) Count 17.9 10x3/uL (4.8-10.8)
[2023-06-30 06:18] LABS: Mean Corpuscular Volume 88.8 fl (78.0-98.0)
[2023-06-30 06:28] LABS: Anion Gap 14 mmol/L (10-20); BUN (Urea Nitrogen) 44 mg/dL (8.9-20.6); Calc. Creatinine Clearance 21 mL/min (70-130); Calcium 7.5 mg/dL (7.8-10.44); Carbon Dioxide 25 mmol/L (22-29); Chloride 98 mmol/L (98-107); Estimated GFR 12; Glucose 102 mg/dL (70-105); Sodium 133 mmol/L (136-145)
[2023-06-30] MEDS: Metoclopramide 10 MG/10 ML UDCUP PO SCH ×4 (06:32→21:00)
[2023-06-30] MEDS: Naloxegol 12.5 MG TAB PO SCH (06:32)
[2023-06-30] MEDS: Aspirin 81 mg Enteric Coated Tablet PO SCH (09:11)
[2023-06-30] MEDS: Ferrous Sulfate 325 MG TAB PO SCH ×2 (09:11→21:01)
[2023-06-30] MEDS: Ascorbic Acid 500 mg Chewable Tablet PO SCH ×2 (09:11→21:01)
[2023-06-30] MEDS: Gabapentin 300 MG CAP PO SCH ×3 (09:11→21:00)
[2023-06-30] MEDS: Saccharomyces boulardii 250 MG CAP PO SCH (09:12)
[2023-06-30] MEDS: Polyethylene Glycol 3350 17 GM Packet PO SCH (09:12)
[2023-06-30] MEDS: Heparin 5,000 UNITS/ML VIAL SC SCH (09:12)
[2023-06-30] MEDS: Senokot S 8.6-50 MG TAB PO SCH ×2 (09:12→21:01)
[2023-06-30] MEDS: Acetaminophen/Codeine 30-300mg Tablet PO PRN (14:43)
[2023-07-01 04:46] LABS: Hematocrit 22.6 % (42.0-52.0); Hemoglobin 7.4 g/dL (14.0-18.0); Mean Corpuscular HGB CONC 32.7 g/dL (32.0-36.0); Mean Corpuscular Volume 88.6 fl (78.0-98.0); Mean Platelet Volume 9.3 fL (7.4-10.4); Platelet Count 652 10x3/uL (130-400); RBC Distribution Width 15.9 % (11.5-14.5); Red Blood Cell (RBC) Count 2.55 mill/uL (4.70-6.10); White Blood Cell (WBC) Count 17.7 10x3/uL (4.8-10.8)
[2023-07-01 04:51] LABS: Delete Auto Diff?? YES; Manual Diff?? YES
[2023-07-01 05:20] LABS: Anion Gap 13 mmol/L (10-20); BUN (Urea Nitrogen) 42 mg/dL (8.9-20.6); Calc. Creatinine Clearance 23 mL/min (70-130); Calcium 7.8 mg/dL (7.8-10.44); Carbon Dioxide 26 mmol/L (22-29); Chloride 99 mmol/L (98-107); Estimated GFR 14; Glucose 104 mg/dL (70-105); Potassium 4.3 mmol/L (3.5-5.1); Sodium 134 mmol/L (136-145)
[2023-07-01 05:22] LABS: Band 3 % (5-11); CellaVision Operator ID lab.abc; Eosinophils 2 % (0-10); Lymphocytes 9 % (21-51); Metamyelocyte 1 % (0-0); Monocytes 5 % (0-10); Myelocyte 1 % (0-0); Neutrophil 77 % (42-75); Platelet Adequacy Comment Platelets Increased; Polychromasia SLIGHT = 2-3 cells HPF (0-2); Smudge Cells 8.9 %; Total Cell Count 101
[2023-07-01] MEDS: Naloxegol 12.5 MG TAB PO SCH (06:37)
[2023-07-01] MEDS: Metoclopramide 10 MG/10 ML UDCUP PO SCH ×4 (06:37→20:54)
[2023-07-01 08:36] LABS: Iron 26 ug/dL (65-175); Iron Binding Capacity, Total 208 mcg/dL (261-462)
[2023-07-01] MEDS: Aspirin 81 mg Enteric Coated Tablet PO SCH (08:41)
[2023-07-01] MEDS: Gabapentin 300 MG CAP PO SCH ×3 (08:41→20:55)
[2023-07-01] MEDS: Ferrous Sulfate 325 MG TAB PO SCH ×2 (08:41→20:54)
[2023-07-01] MEDS: Saccharomyces boulardii 250 MG CAP PO SCH (08:42)
[2023-07-01] MEDS: Ascorbic Acid 500 mg Chewable Tablet PO SCH ×2 (08:42→20:55)
[2023-07-01] MEDS: Acetaminophen/Codeine 30-300mg Tablet PO PRN ×2 (08:42→15:28)
[2023-07-01] MEDS: Senokot S 8.6-50 MG TAB PO SCH ×2 (08:49→20:55)
[2023-07-01] MEDS: Polyethylene Glycol 3350 17 GM Packet PO SCH (08:49)
[2023-07-02 05:13] LABS: #Basophils 0.2 thou/uL (0.0-0.2); #Eosinphils 0.6 thou/uL (0.0-0.7); #Monocytes 1.5 thou/uL (0.11-0.59); #Neutrophils 11.4 thou/uL (1.40-6.50); %Eosinophils 3.7 % (0.0-10.0); %Lymphocytes 15.4 % (21.0-51.0); %Monocytes 8.9 % (0.0-10.0); %Neutrophils 67.3 % (42.0-75.0); Hematocrit 23.3 % (42.0-52.0); Hemoglobin 7.6 g/dL (14.0-18.0); Mean Corpuscular HGB CONC 32.6 g/dL (32.0-36.0); Mean Corpuscular Hemoglobin 28.9 pg (27.0-31.0); Mean Corpuscular Volume 88.6 fl (78.0-98.0); Platelet Count 631 10x3/uL (130-400); RBC Distribution Width 15.7 % (11.5-14.5); Red Blood Cell (RBC) Count 2.63 mill/uL (4.70-6.10); White Blood Cell (WBC) Count 16.9 10x3/uL (4.8-10.8)
[2023-07-02 05:40] LABS: Anion Gap 15 mmol/L (10-20); BUN (Urea Nitrogen) 58 mg/dL (8.9-20.6); Calc. Creatinine Clearance 19 mL/min (70-130); Calcium 8.1 mg/dL (7.8-10.44); Carbon Dioxide 24 mmol/L (22-29); Chloride 99 mmol/L (98-107); Estimated GFR 11; Glucose 93 mg/dL (70-105); Potassium 4.8 mmol/L (3.5-5.1); Sodium 133 mmol/L (136-145)
[2023-07-02] MEDS: Metoclopramide 10 MG/10 ML UDCUP PO SCH ×2 (06:48→12:07)
[2023-07-02] MEDS: Naloxegol 12.5 MG TAB PO SCH (06:48)
[2023-07-02] MEDS: Saccharomyces boulardii 250 MG CAP PO SCH (09:13)
[2023-07-02] MEDS: Aspirin 81 mg Enteric Coated Tablet PO SCH (09:13)
[2023-07-02] MEDS: Gabapentin 300 MG CAP PO SCH (09:14)
[2023-07-02] MEDS: Acetaminophen/Codeine 30-300mg Tablet PO PRN (09:16)
[2023-07-02] MEDS: Polyethylene Glycol 3350 17 GM Packet PO SCH (09:19)
[2023-07-02] MEDS: Ascorbic Acid 500 mg Chewable Tablet PO SCH (09:19)
[2023-07-02] MEDS: Ferrous Sulfate 325 MG TAB PO SCH (09:19)
[2023-07-02] MEDS: Senokot S 8.6-50 MG TAB PO SCH (09:20)
[2023-07-02] MEDS ORDERED: Heparin 10,000 UNITS/ 10 ML VIAL ONE (11:28)
[2023-07-02 16:18] VITALS: BP 148/77; TEMP 98.4
[2023-07-05 12:35] LABS: Actual Bicarbonate (HCO3a) 21.1 mEq/L (22-28); Analyzer IN Cardio OR; Base Excess (BEa) -5.1 mEq/L (-2.0 to +3.0); Calcium, Ionized (arterial) 1.28 mmol/L (1.12-1.30); Carboxyhemoglobin (COHb) 0.5 gm% (0.0-3.0); Hematocrit-ABG 30 % (42.0-52.0); Hemoglobin (Hb) 10.2 g/dL (14.0-18.0); O2 Tension (PaO2), arterial 486.9 mmHg (80.0-100.0); Potassium - ABG Lab 4.31 mmol/L (3.70-5.30); pH, Arterial 7.298 (7.35-7.45)
[2023-07-05 12:35] LABS: Actual Bicarbonate (HCO3a) 19.6 mEq/L (22-28); Analyzer IN Cardio OR; CO2 Tension 48.9 mmHg (35.0-45.0); Calcium, Ionized (arterial) 1.37 mmol/L (1.12-1.30); Carboxyhemoglobin (COHb) 0.8 gm% (0.0-3.0); Hematocrit-ABG 36 % (42.0-52.0); Hemoglobin (Hb) 12.1 g/dL (14.0-18.0); O2 Tension (PaO2), arterial 576.8 mmHg (80.0-100.0); Potassium - ABG Lab 4.32 mmol/L (3.70-5.30); pH, Arterial 7.221 (7.35-7.45)
[2023-07-05 12:35] LABS: Analyzer IN Cardio OR; Base Excess (BEa) -12.7 mEq/L (-2.0 to +3.0); CO2 Tension 41.4 mmHg (35.0-45.0); Carboxyhemoglobin (COHb) 1.1 gm% (0.0-3.0); Hematocrit-ABG 36 % (42.0-52.0); Hemoglobin (Hb) 12.4 g/dL (14.0-18.0); O2 Tension (PaO2), arterial 541.9 mmHg (80.0-100.0); Potassium - ABG Lab 4.81 mmol/L (3.70-5.30)
[2023-07-05 12:36] LABS: Actual Bicarbonate (HCO3a) 16.1 mEq/L (22-28); Analyzer IN Cardio OR; Base Excess (BEa) -11.1 mEq/L (-2.0 to +3.0); CO2 Tension 40.8 mmHg (35.0-45.0); Calcium, Ionized (arterial) 1.31 mmol/L (1.12-1.30); Carboxyhemoglobin (COHb) 0.6 gm% (0.0-3.0); Hematocrit-ABG 34 % (42.0-52.0); Hemoglobin (Hb) 11.6 g/dL (14.0-18.0); O2 Tension (PaO2), arterial 534.5 mmHg (80.0-100.0); Potassium - ABG Lab 4.24 mmol/L (3.70-5.30); pH, Arterial 7.213 (7.35-7.45)
[2023-07-05 12:40] LABS: Actual Bicarbonate (HCO3a) 18.2 mEq/L (22-28); Analyzer IN Cardio OR; Base Excess (BEa) -11.5 mEq/L (-2.0 to +3.0); CO2 Tension 56.9 mmHg (35.0-45.0); Calcium, Ionized (arterial) 1.33 mmol/L (1.12-1.30); Carboxyhemoglobin (COHb) 1.1 gm% (0.0-3.0); Hematocrit-ABG 40 % (42.0-52.0); Hemoglobin (Hb) 13.6 g/dL (14.0-18.0); O2 Tension (PaO2), arterial 477.3 mmHg (80.0-100.0); Potassium - ABG Lab 4.18 mmol/L (3.70-5.30)
[2023-07-05 13:44] LABS: pH, Arterial 7.178 (7.35-7.45)
[2023-07-05 13:45] LABS: Puncture Site Arterial Line
[2023-07-05 13:45] LABS: Puncture Site Arterial Line
[2023-07-05 13:45] LABS: Puncture Site Arterial Line
[2023-07-05 13:46] LABS: Puncture Site Arterial Line
[2023-07-05 13:47] LABS: Puncture Site Arterial Line; pH, Arterial 7.122 (7.35-7.45)
== END 2023-07-02 16:49 | disposition home or self-care (01) | DRG 957 ==
LOC: ERS 20:26 → SDC/OP 22:04 → CCU 23:48 → SURG A 06-22 14:22
PROVIDERS: ADMIT Surgery; ATTEND Surgery
PROC: 04QK0ZZ Repair Right Femoral Artery, Open Approach (ICD-10-PCS; principal; 2023-06-17)
PROC: 0KNS0ZZ Release Right Lower Leg Muscle, Open Approach (ICD-10-PCS; 2023-06-17)
PROC: 5A12012 Performance of Cardiac Output, Single, Manual (ICD-10-PCS; 2023-06-17)
PROC: 02HV33Z Insertion of Infusion Device into Superior Vena Cava, Percutaneous Approach (ICD-10-PCS; 2023-06-17)
PROC: 4A133R1 Monitoring of Arterial Saturation, Peripheral, Percutaneous Approach (ICD-10-PCS; 2023-06-17)
PROC: 3E033XZ Introduction of Vasopressor into Peripheral Vein, Percutaneous Approach (ICD-10-PCS; 2023-06-17)
PROC: 30233J1 Transfusion of Nonautologous Serum Albumin into Peripheral Vein, Percutaneous Approach (ICD-10-PCS; 2023-06-17)
PROC: 0BH17EZ Insertion of Endotracheal Airway into Trachea, Via Natural or Artificial Opening (ICD-10-PCS; 2023-06-17)
PROC: 5A1945Z Respiratory Ventilation, 24-96 Consecutive Hours (ICD-10-PCS; 2023-06-18)
PROC: 5A1D70Z Performance of Urinary Filtration, Intermittent, Less than 6 Hours Per Day (ICD-10-PCS; 2023-06-20)
PROC: 06HY33Z Insertion of Infusion Device into Lower Vein, Percutaneous Approach (ICD-10-PCS; 2023-06-20)
PROC: 30233R1 Transfusion of Nonautologous Platelets into Peripheral Vein, Percutaneous Approach (ICD-10-PCS; 2023-06-20)
PROC: 06HN33Z Insertion of Infusion Device into Left Femoral Vein, Percutaneous Approach (ICD-10-PCS; 2023-06-21)
PROC: 5A1D70Z Performance of Urinary Filtration, Intermittent, Less than 6 Hours Per Day (ICD-10-PCS; 2023-06-21)
PROC: 5A1D70Z Performance of Urinary Filtration, Intermittent, Less than 6 Hours Per Day (ICD-10-PCS; 2023-06-23)
PROC: 5A1D70Z Performance of Urinary Filtration, Intermittent, Less than 6 Hours Per Day (ICD-10-PCS; 2023-06-24)
PROC: 5A1D70Z Performance of Urinary Filtration, Intermittent, Less than 6 Hours Per Day (ICD-10-PCS; 2023-06-25)
PROC: 05HM33Z Insertion of Infusion Device into Right Internal Jugular Vein, Percutaneous Approach (ICD-10-PCS; 2023-06-26)
PROC: B513ZZA Fluoroscopy of Right Jugular Veins, Guidance (ICD-10-PCS; 2023-06-26)
PROC: 30233K1 Transfusion of Nonautologous Frozen Plasma into Peripheral Vein, Percutaneous Approach (ICD-10-PCS; 2023-06-26)
PROC: 30233N1 Transfusion of Nonautologous Red Blood Cells into Peripheral Vein, Percutaneous Approach (ICD-10-PCS; 2023-06-26)
PROC: 0JH63XZ Insertion of Tunneled Vascular Access Device into Chest Subcutaneous Tissue and Fascia, Percutaneous Approach (ICD-10-PCS; 2023-06-26)
PROC: 5A1D70Z Performance of Urinary Filtration, Intermittent, Less than 6 Hours Per Day (ICD-10-PCS; 2023-06-28)
PROC: 5A1D70Z Performance of Urinary Filtration, Intermittent, Less than 6 Hours Per Day (ICD-10-PCS; 2023-06-29)
PROC: 5A1D70Z Performance of Urinary Filtration, Intermittent, Less than 6 Hours Per Day (ICD-10-PCS; 2023-06-30)
PROC: 5A1D70Z Performance of Urinary Filtration, Intermittent, Less than 6 Hours Per Day (ICD-10-PCS; 2023-07-02)
PROC: 06UP07Z Supplement Right Saphenous Vein with Autologous Tissue Substitute, Open Approach (ICD-10-PCS; 2023-07-02)
PROC: [UNRECOGNIZED PROCEDURE] (2023-07-02)
DX: S75.001A Unspecified injury of femoral artery, right leg, initial encounter (principal); I46.9 Cardiac arrest, cause unspecified; T79.6XXA Traumatic ischemia of muscle, initial encounter; J96.01 Acute respiratory failure with hypoxia; R57.8 Other shock; K72.00 Acute and subacute hepatic failure without coma; N18.6 End stage renal disease; N17.9 Acute kidney failure, unspecified; E87.21 Acute metabolic acidosis; S31.133A Puncture wound of abdominal wall without foreign body, right lower quadrant without penetration into peritoneal cavity, initial encounter; G83.9 Paralytic syndrome, unspecified; E87.5 Hyperkalemia; E16.2 Hypoglycemia, unspecified; F15.90 Other stimulant use, unspecified, uncomplicated; F19.90 Other psychoactive substance use, unspecified, uncomplicated; F17.210 Nicotine dependence, cigarettes, uncomplicated; F10.90 Alcohol use, unspecified, uncomplicated; E83.51 Hypocalcemia; R19.7 Diarrhea, unspecified; D69.6 Thrombocytopenia, unspecified; D63.1 Anemia in chronic kidney disease; Z79.899 Other long term (current) drug therapy; Z98.890 Other specified postprocedural states; W34.09XA Accidental discharge from other specified firearms, initial encounter
CPT/HCPCS: 36415; 36416; 36430; 36600; 47532; 71045; 71046; 74177; 80048; 80053; 80076; 80306; 81001; 82310; 82550; 82805; 83540; 83550; 83605; 83630; 83735; 84100; 84145; 85025; 85060; 85610; 85730; 86704; 86850; 86900; 86901; 87040; 87086; 87324; 87449; 90714; 90935; 93005; 93010; 93926; 94002; 94003; 96365; 96374; 96375; 96376; C1751; C1752; G0257; G0390; J0692; J1100; J1642; J1644; J2001; J2060; J2272; J2405; J2704; J2720; J3010; J3475; J3480; J3490; J7030; J7042; J7050; J7120; J7999; P9016; P9035; P9047; P9048; P9059; Q9967; S0028

== ENCOUNTER 2023-07-05 09:38 | Emergency (ER) | payer OTHER ==
[2023-07-05 11:16] LABS: #Basophils 0.2 thou/uL (0.0-0.2); #Eosinphils 0.3 thou/uL (0.0-0.7); #Monocytes 0.8 thou/uL (0.11-0.59); #Neutrophils 7.3 thou/uL (1.40-6.50); %Basophils 1.9 % (0.0-1.0); %Eosinophils 2.7 % (0.0-10.0); %Lymphocytes 12.5 % (21.0-51.0); %Monocytes 8.1 % (0.0-10.0); %Neutrophils 73.8 % (42.0-75.0); Hematocrit 27.1 % (42.0-52.0); Hemoglobin 8.4 g/dL (14.0-18.0); Mean Corpuscular Hemoglobin 28.5 pg (27.0-31.0); Mean Corpuscular Volume 91.9 fl (78.0-98.0); Mean Platelet Volume 8.5 fL (7.4-10.4); Platelet Count 621 10x3/uL (130-400); RBC Distribution Width 15.4 % (11.5-14.5); Red Blood Cell (RBC) Count 2.95 mill/uL (4.70-6.10); White Blood Cell (WBC) Count 9.9 10x3/uL (4.8-10.8)
[2023-07-05 11:44] LABS: Anion Gap 16 mmol/L (10-20); BUN (Urea Nitrogen) 30 mg/dL (8.9-20.6); Calc. Creatinine Clearance 0 mL/min (70-130); Calcium 8.7 mg/dL (7.6-10.4); Carbon Dioxide 26 mmol/L (22-29); Chloride 102 mmol/L (98-107); Estimated GFR 26; Glucose 82 mg/dL (70-105); Potassium 4.7 mmol/L (3.5-5.1); Sodium 139 mmol/L (136-145)
== END 2023-07-05 12:03 | disposition home or self-care (01) ==
LOC: ERS 09:38
DX: R60.0 Localized edema (principal); F17.210 Nicotine dependence, cigarettes, uncomplicated
CPT/HCPCS: 36415; 80048; 85025